=== PATIENT | male | born 1975 | race Caucasian/White ===

== ENCOUNTER 2022-03-28 17:26 | Inpatient (IN) | payer OTHER ==
[~2022-03-28] VITALS: Ht 162.6 cm; Wt 60.4 kg
[~2022-03-28 17:26] MED LIST: ATOR10TA PO; CHOL500013 PO; DIVA-112 PO; LEVE250T4 PO; LEVO50 PO; MELA5TAB40 PO; OLAN10TA74 PO; QUET200T PO; TRAZ-257 PO
[2022-03-28] MEDS ORDERED: ACETAMINOPHEN 325 MG TABLET PO PRN (19:30)
[2022-03-28] MEDS ORDERED: ONDANSETRON HCL 4 MG/2 ML VIAL IVP PRN (19:30)
[2022-03-28] MEDS ORDERED: DiphenhydrAMINE HCL 50 MG/ML VIAL IM ONE (21:00)
[2022-03-28] MEDS ORDERED: LORazepam 2 MG/ML VIAL IM ONE (21:00)
[2022-03-28] MEDS: QUEtiapine FUMARATE 200 MG TABLET PO SCH ×2 (21:00→22:58)
[2022-03-28] MEDS ORDERED: HALOPERIDOL LACTATE 5 MG/ML VIAL IM ONE (21:00)
[2022-03-28] MEDS: OLANZapine 10 MG TABLET PO SCH ×2 (21:00→22:58)
[2022-03-28 21:12] LABS: HEMATOCRIT 39.1 % (41-53); HEMOGLOBIN 12.8 g/dL (13.5-17.5); MEAN CORPUSCULAR HEMOGLOBIN 30.7 pg (26.0-34.0); MEAN CORPUSCULAR HGB CONC 32.6 G/dL (31.0-37.0); MEAN CORPUSCULAR VOLUME 94 fL (80-100); PLATELET COUNT (AUTO) 369 K/uL (150-450); RED BLOOD CELL COUNT(AUTO) 4.16 MIL/uL (4.50-5.90); RED CELL DISTRIBUTION WIDTH 14.1 % (11.5-14.5)
[2022-03-28 21:16] LABS: COVID AG,FIA SOURCE NASOPHARYNGEAL
[2022-03-28 21:22] LABS: ANION GAP 4 mmol/L (8-16); CALCIUM, TOTAL 9.4 mg/dL (8.8-10.5); CARBON DIOXIDE 30 mmol/L (22-29); CHLORIDE 96 mmol/L (98-107); CREATININE 0.81 mg/dL (0.60-1.30); GLUCOSE,RANDOM 108 mg/dL (70-110); POTASSIUM 4.2 mmol/L (3.5-5.1); SODIUM SERUM 130 mmol/L (136-145); UREA NITROGEN, BLOOD 22 mg/dL (7-18)
[2022-03-28 21:24] LABS: GLOMERULAR FILTR. RATE CALC > 60 mL/min (>60)
[2022-03-28 21:28] LABS: ALANINE AMINOTRANSFERASE 21 U/L (12-78); ALBUMIN 2.3 g/dL (3.4-5.0); ALKALINE PHOSPHATASE 159 U/L (46-116); ASPARTATE AMINOTRANSFERASE 28 U/L (15-37); BILIRUBIN,TOTAL 0.3 mg/dL (0.1-1.0); TOTAL PROTEIN, SERUM 7.6 g/dL (6.4-8.2)
[2022-03-28 21:43] LABS: BAND NEUTROPHILS % (MANUAL) 17 % (0-5); LYMPHOCYTES % (MANUAL) 16 % (22-44); MONOCYTES % (MANUAL) 12 % (2-9); SEGMENTED NEUTROPHILS % 55 % (40-70)
[2022-03-28] MEDS: DIVALPROEX SODIUM 500 MG DR TABLET PO SCH (21:51)
[2022-03-28] MEDS: LevETIRAcetam 250 MG TABLET PO SCH (21:51)
[2022-03-28] MEDS: ATORVASTATIN CALCIUM 10 MG TABLET PO SCH (21:51)
[2022-03-28] MEDS ORDERED: RINGERS SOLUTION,LACTATED 1,000 ML IV SCH (22:30)
[2022-03-28] MEDS: MELATONIN 5 MG TABLET PO SCH (22:58)
[2022-03-28] MEDS: TraZODone HCL 100 MG TABLET PO SCH (22:59)
[2022-03-29] MEDS: LEVOTHYROXINE SODIUM 50 MCG TABLET PO SCH (06:30)
[2022-03-29 08:00] VITALS: BP 125/73
[2022-03-29 08:45] VITALS: BP 125/73
[2022-03-29] MEDS: DIVALPROEX SODIUM 500 MG DR TABLET PO SCH ×3 (09:42→20:14)
[2022-03-29] MEDS: OLANZapine 10 MG TABLET PO SCH ×2 (09:43→20:17)
[2022-03-29] MEDS: LevETIRAcetam 250 MG TABLET PO SCH ×2 (09:43→20:15)
[2022-03-29] MEDS: CHOLECALCIFEROL (VIT D3) 5,000 [125 MCG] UNITS CAPSULE PO SCH (09:43)
[2022-03-29 15:00] VITALS: BP 121/78
[2022-03-29 19:40] VITALS: BP 132/86
[2022-03-29] MEDS: ATORVASTATIN CALCIUM 10 MG TABLET PO SCH (20:15)
[2022-03-29] MEDS: TraZODone HCL 100 MG TABLET PO SCH (20:15)
[2022-03-29] MEDS: QUEtiapine FUMARATE 200 MG TABLET PO SCH (20:16)
[2022-03-29] MEDS: MELATONIN 5 MG TABLET PO SCH (20:16)
[2022-03-30 04:00] VITALS: BP 119/72
[2022-03-30] MEDS: LEVOTHYROXINE SODIUM 50 MCG TABLET PO SCH (06:14)
[2022-03-30] MEDS: DIVALPROEX SODIUM 500 MG DR TABLET PO SCH ×3 (08:54→21:12)
[2022-03-30] MEDS: CHOLECALCIFEROL (VIT D3) 5,000 [125 MCG] UNITS CAPSULE PO SCH (08:54)
[2022-03-30] MEDS: OLANZapine 10 MG TABLET PO SCH ×2 (08:54→21:11)
[2022-03-30] MEDS: LevETIRAcetam 250 MG TABLET PO SCH ×2 (08:54→21:12)
[2022-03-30 11:31] LABS: BASOPHILS % (AUTO) 0.4 % (0.0-2.0); HEMATOCRIT 37.5 % (41-53); HEMOGLOBIN 12.6 g/dL (13.5-17.5); LYMPHOCYTES % (AUTO) 23.3 % (22.0-44.0); MEAN CORPUSCULAR HEMOGLOBIN 31.6 pg (26.0-34.0); MEAN CORPUSCULAR HGB CONC 33.5 G/dL (31.0-37.0); MEAN CORPUSCULAR VOLUME 94 fL (80-100); MONOCYTES # (AUTO) 0.8 K/uL (0.1-1.0); MONOCYTES % (AUTO) 9.2 % (2.0-9.0); NEUTROPHILS # (AUTO) 5.8 K/uL (1.8-7.7); NEUTROPHILS % (AUTO) 66.1 % (40.0-70.0); PLATELET COUNT (AUTO) 377 K/uL (150-450); RED BLOOD CELL COUNT(AUTO) 3.98 MIL/uL (4.50-5.90); RED CELL DISTRIBUTION WIDTH 14.1 % (11.5-14.5)
[2022-03-30 11:45] LABS: ANION GAP 5 mmol/L (8-16); CALCIUM, TOTAL 8.9 mg/dL (8.8-10.5); CARBON DIOXIDE 31 mmol/L (22-29); CHLORIDE 94 mmol/L (98-107); CREATININE 0.62 mg/dL (0.60-1.30); GLUCOSE,RANDOM 110 mg/dL (70-110); POTASSIUM 4.1 mmol/L (3.5-5.1); SODIUM SERUM 130 mmol/L (136-145); UREA NITROGEN, BLOOD 10 mg/dL (7-18)
[2022-03-30 11:50] LABS: GLOMERULAR FILTR. RATE CALC > 60 mL/min (>60)
[2022-03-30 20:05] VITALS: BP 108/65
[2022-03-30] MEDS: MELATONIN 5 MG TABLET PO SCH (21:11)
[2022-03-30] MEDS: QUEtiapine FUMARATE 200 MG TABLET PO SCH (21:11)
[2022-03-30] MEDS: ATORVASTATIN CALCIUM 10 MG TABLET PO SCH (21:12)
[2022-03-30] MEDS: TraZODone HCL 100 MG TABLET PO SCH (21:13)
[2022-03-31] MEDS: LEVOTHYROXINE SODIUM 50 MCG TABLET PO SCH (06:11)
[2022-03-31 08:43] VITALS: BP 121/78
[2022-03-31] MEDS: LevETIRAcetam 250 MG TABLET PO SCH ×2 (09:12→20:01)
[2022-03-31] MEDS: OLANZapine 10 MG TABLET PO SCH ×2 (09:12→20:01)
[2022-03-31] MEDS: DIVALPROEX SODIUM 500 MG DR TABLET PO SCH ×3 (09:12→20:00)
[2022-03-31] MEDS: CHOLECALCIFEROL (VIT D3) 5,000 [125 MCG] UNITS CAPSULE PO SCH (09:12)
[2022-03-31 16:07] VITALS: BP 108/66
[2022-03-31 19:30] VITALS: BP 106/69
[2022-03-31] MEDS: MELATONIN 5 MG TABLET PO SCH (20:00)
[2022-03-31] MEDS: QUEtiapine FUMARATE 200 MG TABLET PO SCH (20:00)
[2022-03-31] MEDS: TraZODone HCL 100 MG TABLET PO SCH (20:01)
[2022-03-31] MEDS: ATORVASTATIN CALCIUM 10 MG TABLET PO SCH (20:01)
[2022-04-01 06:00] VITALS: BP 103/75
[2022-04-01] MEDS: LEVOTHYROXINE SODIUM 50 MCG TABLET PO SCH (06:04)
[2022-04-01] MEDS: CHOLECALCIFEROL (VIT D3) 5,000 [125 MCG] UNITS CAPSULE PO SCH (08:28)
[2022-04-01] MEDS: DIVALPROEX SODIUM 500 MG DR TABLET PO SCH ×3 (08:30→21:38)
[2022-04-01] MEDS: OLANZapine 10 MG TABLET PO SCH ×2 (08:30→21:41)
[2022-04-01] MEDS: LevETIRAcetam 250 MG TABLET PO SCH ×2 (08:30→21:39)
[2022-04-01 08:39] VITALS: BP 104/65
[2022-04-01 16:35] VITALS: BP 100/72
[2022-04-01 19:30] VITALS: BP 110/79
[2022-04-01] MEDS: TraZODone HCL 100 MG TABLET PO SCH (21:38)
[2022-04-01] MEDS: ATORVASTATIN CALCIUM 10 MG TABLET PO SCH (21:39)
[2022-04-01] MEDS: MELATONIN 5 MG TABLET PO SCH (21:40)
[2022-04-01] MEDS: QUEtiapine FUMARATE 200 MG TABLET PO SCH (21:40)
[2022-04-02] MEDS: LEVOTHYROXINE SODIUM 50 MCG TABLET PO SCH (05:48)
[2022-04-02 06:00] VITALS: BP 103/61
[2022-04-02 06:48] LABS: BASOPHILS % (AUTO) 0.3 % (0.0-2.0); EOSINOPHILS % (AUTO) 0.7 % (1.0-6.0); HEMATOCRIT 35.7 % (41-53); LYMPHOCYTES # (AUTO) 2.5 K/uL (1.0-4.8); LYMPHOCYTES % (AUTO) 27.5 % (22.0-44.0); MEAN CORPUSCULAR HEMOGLOBIN 31.8 pg (26.0-34.0); MEAN CORPUSCULAR HGB CONC 33.6 G/dL (31.0-37.0); MEAN CORPUSCULAR VOLUME 95 fL (80-100); MONOCYTES # (AUTO) 0.6 K/uL (0.1-1.0); MONOCYTES % (AUTO) 7.1 % (2.0-9.0); NEUTROPHILS # (AUTO) 5.8 K/uL (1.8-7.7); NEUTROPHILS % (AUTO) 64.4 % (40.0-70.0); PLATELET COUNT (AUTO) 404 K/uL (150-450); RED BLOOD CELL COUNT(AUTO) 3.77 MIL/uL (4.50-5.90); RED CELL DISTRIBUTION WIDTH 14.2 % (11.5-14.5)
[2022-04-02] MEDS: LevETIRAcetam 250 MG TABLET PO SCH ×2 (08:11→20:27)
[2022-04-02] MEDS: DIVALPROEX SODIUM 500 MG DR TABLET PO SCH ×3 (08:11→20:27)
[2022-04-02] MEDS: CHOLECALCIFEROL (VIT D3) 5,000 [125 MCG] UNITS CAPSULE PO SCH (08:11)
[2022-04-02] MEDS: OLANZapine 10 MG TABLET PO SCH ×2 (08:11→20:27)
[2022-04-02] MEDS ORDERED: SODIUM CHLORIDE 0.9% 250 ML IV ONE (09:21)
[2022-04-02 09:31] VITALS: BP 113/63
[2022-04-02 15:54] VITALS: BP 105/59
[2022-04-02 19:58] VITALS: BP 111/69
[2022-04-02] MEDS: ATORVASTATIN CALCIUM 10 MG TABLET PO SCH (20:27)
[2022-04-02] MEDS: MELATONIN 5 MG TABLET PO SCH (20:27)
[2022-04-02] MEDS: TraZODone HCL 100 MG TABLET PO SCH (20:27)
[2022-04-02] MEDS: QUEtiapine FUMARATE 200 MG TABLET PO SCH (20:27)
[2022-04-03 04:42] VITALS: BP 108/63
[2022-04-03 06:00] LABS: ALANINE AMINOTRANSFERASE 24 U/L (12-78); ALBUMIN 2.4 g/dL (3.4-5.0); ALKALINE PHOSPHATASE 129 U/L (46-116); ANION GAP 5 mmol/L (8-16); ASPARTATE AMINOTRANSFERASE 27 U/L (15-37); BILIRUBIN,TOTAL 0.3 mg/dL (0.1-1.0); CALCIUM, TOTAL 9.2 mg/dL (8.8-10.5); CARBON DIOXIDE 31 mmol/L (22-29); CHLORIDE 97 mmol/L (98-107); CREATININE 0.62 mg/dL (0.60-1.30); GLUCOSE,RANDOM 95 mg/dL (70-110); POTASSIUM 4.1 mmol/L (3.5-5.1); SODIUM SERUM 133 mmol/L (136-145); TOTAL PROTEIN, SERUM 7.2 g/dL (6.4-8.2); UREA NITROGEN, BLOOD 9 mg/dL (7-18)
[2022-04-03 06:01] LABS: GLOMERULAR FILTR. RATE CALC > 60 mL/min (>60)
[2022-04-03] MEDS: LEVOTHYROXINE SODIUM 50 MCG TABLET PO SCH (07:21)
[2022-04-03 07:33] VITALS: BP 111/55
[2022-04-03] MEDS: LevETIRAcetam 250 MG TABLET PO SCH ×2 (08:26→21:02)
[2022-04-03] MEDS: DIVALPROEX SODIUM 500 MG DR TABLET PO SCH ×3 (08:26→21:02)
[2022-04-03] MEDS: OLANZapine 10 MG TABLET PO SCH ×2 (08:26→21:02)
[2022-04-03] MEDS: CHOLECALCIFEROL (VIT D3) 5,000 [125 MCG] UNITS CAPSULE PO SCH (08:27)
[2022-04-03 15:19] VITALS: BP 98/70
[2022-04-03 20:30] VITALS: BP 98/60
[2022-04-03] MEDS: QUEtiapine FUMARATE 200 MG TABLET PO SCH (21:02)
[2022-04-03] MEDS: TraZODone HCL 100 MG TABLET PO SCH (21:02)
[2022-04-03] MEDS: ATORVASTATIN CALCIUM 10 MG TABLET PO SCH (21:02)
[2022-04-03] MEDS: MELATONIN 5 MG TABLET PO SCH (21:08)
[2022-04-04 05:00] VITALS: BP 100/72
[2022-04-04] MEDS: LEVOTHYROXINE SODIUM 50 MCG TABLET PO SCH (05:49)
[2022-04-04 07:41] VITALS: BP 102/68
[2022-04-04] MEDS: CHOLECALCIFEROL (VIT D3) 5,000 [125 MCG] UNITS CAPSULE PO SCH (08:57)
[2022-04-04] MEDS: LevETIRAcetam 250 MG TABLET PO SCH ×2 (08:57→21:05)
[2022-04-04] MEDS: DIVALPROEX SODIUM 500 MG DR TABLET PO SCH ×3 (08:57→21:05)
[2022-04-04] MEDS: OLANZapine 10 MG TABLET PO SCH ×2 (08:57→21:05)
[2022-04-04 15:01] VITALS: BP 106/70
[2022-04-04] MEDS: QUEtiapine FUMARATE 200 MG TABLET PO SCH (21:05)
[2022-04-04] MEDS: MELATONIN 5 MG TABLET PO SCH (21:05)
[2022-04-04] MEDS: TraZODone HCL 100 MG TABLET PO SCH (21:05)
[2022-04-04] MEDS: ATORVASTATIN CALCIUM 10 MG TABLET PO SCH (21:05)
[2022-04-04 21:20] VITALS: BP 110/64
[2022-04-05] MEDS: LEVOTHYROXINE SODIUM 50 MCG TABLET PO SCH (05:53)
[2022-04-05 05:58] VITALS: BP 104/65
[2022-04-05 08:00] VITALS: BP 112/68
[2022-04-05] MEDS: OLANZapine 10 MG TABLET PO SCH ×2 (08:33→20:45)
[2022-04-05] MEDS: DIVALPROEX SODIUM 500 MG DR TABLET PO SCH ×3 (08:33→20:44)
[2022-04-05] MEDS: CHOLECALCIFEROL (VIT D3) 5,000 [125 MCG] UNITS CAPSULE PO SCH (08:33)
[2022-04-05] MEDS: LevETIRAcetam 250 MG TABLET PO SCH ×2 (08:33→20:44)
[2022-04-05 19:30] VITALS: BP 105/59
[2022-04-05] MEDS: TraZODone HCL 100 MG TABLET PO SCH (20:44)
[2022-04-05] MEDS: QUEtiapine FUMARATE 200 MG TABLET PO SCH (20:44)
[2022-04-05] MEDS: ATORVASTATIN CALCIUM 10 MG TABLET PO SCH (20:44)
[2022-04-05] MEDS: MELATONIN 5 MG TABLET PO SCH (20:45)
[2022-04-06 05:00] VITALS: BP 96/56
[2022-04-06] MEDS: LEVOTHYROXINE SODIUM 50 MCG TABLET PO SCH (05:44)
[2022-04-06 07:28] VITALS: BP 107/61
[2022-04-06] MEDS: DIVALPROEX SODIUM 500 MG DR TABLET PO SCH ×3 (08:04→21:04)
[2022-04-06] MEDS: LevETIRAcetam 250 MG TABLET PO SCH ×2 (08:04→21:04)
[2022-04-06] MEDS: CHOLECALCIFEROL (VIT D3) 5,000 [125 MCG] UNITS CAPSULE PO SCH (08:04)
[2022-04-06] MEDS: OLANZapine 10 MG TABLET PO SCH ×2 (08:04→21:05)
[2022-04-06 15:03] VITALS: BP 103/59
[2022-04-06 20:10] VITALS: BP 102/66
[2022-04-06] MEDS: QUEtiapine FUMARATE 200 MG TABLET PO SCH (21:04)
[2022-04-06] MEDS: ATORVASTATIN CALCIUM 10 MG TABLET PO SCH (21:04)
[2022-04-06] MEDS: MELATONIN 5 MG TABLET PO SCH (21:04)
[2022-04-06] MEDS: TraZODone HCL 100 MG TABLET PO SCH (21:04)
[2022-04-07 06:00] VITALS: BP 106/60
[2022-04-07] MEDS: LEVOTHYROXINE SODIUM 50 MCG TABLET PO SCH (06:07)
[2022-04-07] MEDS: DIVALPROEX SODIUM 500 MG DR TABLET PO SCH ×3 (08:49→20:13)
[2022-04-07] MEDS: OLANZapine 10 MG TABLET PO SCH ×2 (08:49→20:13)
[2022-04-07] MEDS: LevETIRAcetam 250 MG TABLET PO SCH ×2 (08:49→20:13)
[2022-04-07] MEDS: CHOLECALCIFEROL (VIT D3) 5,000 [125 MCG] UNITS CAPSULE PO SCH (08:49)
[2022-04-07 08:50] VITALS: BP 106/64
[2022-04-07 15:07] VITALS: BP 105/70
[2022-04-07 19:32] VITALS: BP 105/62
[2022-04-07] MEDS: TraZODone HCL 100 MG TABLET PO SCH (20:13)
[2022-04-07] MEDS: MELATONIN 5 MG TABLET PO SCH (20:13)
[2022-04-07] MEDS: QUEtiapine FUMARATE 200 MG TABLET PO SCH (20:13)
[2022-04-07] MEDS: ATORVASTATIN CALCIUM 10 MG TABLET PO SCH (20:13)
[2022-04-08 04:48] VITALS: BP 102/62
[2022-04-08] MEDS: LEVOTHYROXINE SODIUM 50 MCG TABLET PO SCH (05:42)
[2022-04-08 08:00] VITALS: BP 97/64
[2022-04-08] MEDS: DIVALPROEX SODIUM 500 MG DR TABLET PO SCH ×3 (08:40→20:11)
[2022-04-08] MEDS: OLANZapine 10 MG TABLET PO SCH ×2 (08:40→20:12)
[2022-04-08] MEDS: LevETIRAcetam 250 MG TABLET PO SCH ×2 (08:40→20:11)
[2022-04-08] MEDS: CHOLECALCIFEROL (VIT D3) 5,000 [125 MCG] UNITS CAPSULE PO SCH (08:40)
[2022-04-08 16:32] VITALS: BP 112/64
[2022-04-08 19:40] VITALS: BP 109/57
[2022-04-08] MEDS: MELATONIN 5 MG TABLET PO SCH (20:11)
[2022-04-08] MEDS: TraZODone HCL 100 MG TABLET PO SCH (20:11)
[2022-04-08] MEDS: ATORVASTATIN CALCIUM 10 MG TABLET PO SCH (20:11)
[2022-04-08] MEDS: QUEtiapine FUMARATE 200 MG TABLET PO SCH (20:12)
[2022-04-09 05:31] VITALS: BP 103/52
[2022-04-09] MEDS: LEVOTHYROXINE SODIUM 50 MCG TABLET PO SCH (05:33)
[2022-04-09 08:34] VITALS: BP 116/67
[2022-04-09] MEDS: CHOLECALCIFEROL (VIT D3) 5,000 [125 MCG] UNITS CAPSULE PO SCH (09:32)
[2022-04-09] MEDS: LevETIRAcetam 250 MG TABLET PO SCH ×2 (09:32→20:34)
[2022-04-09] MEDS: OLANZapine 10 MG TABLET PO SCH ×2 (09:32→20:34)
[2022-04-09] MEDS: DIVALPROEX SODIUM 500 MG DR TABLET PO SCH ×3 (09:32→20:34)
[2022-04-09 16:55] VITALS: BP 114/63
[2022-04-09] MEDS: ATORVASTATIN CALCIUM 10 MG TABLET PO SCH (20:34)
[2022-04-09] MEDS: MELATONIN 5 MG TABLET PO SCH (20:34)
[2022-04-09] MEDS: TraZODone HCL 100 MG TABLET PO SCH (20:34)
[2022-04-09] MEDS: QUEtiapine FUMARATE 200 MG TABLET PO SCH (20:34)
[2022-04-09 20:41] VITALS: BP 113/60
[2022-04-10 04:18] VITALS: BP 106/62
[2022-04-10] MEDS: LEVOTHYROXINE SODIUM 50 MCG TABLET PO SCH (06:06)
[2022-04-10 07:54] VITALS: BP 104/65
[2022-04-10] MEDS: LevETIRAcetam 250 MG TABLET PO SCH ×2 (09:02→20:16)
[2022-04-10] MEDS: DIVALPROEX SODIUM 500 MG DR TABLET PO SCH ×3 (09:02→20:17)
[2022-04-10] MEDS: CHOLECALCIFEROL (VIT D3) 5,000 [125 MCG] UNITS CAPSULE PO SCH (09:03)
[2022-04-10] MEDS: OLANZapine 10 MG TABLET PO SCH ×2 (09:03→20:16)
[2022-04-10 15:24] VITALS: BP 111/63
[2022-04-10 19:45] VITALS: BP 106/56
[2022-04-10] MEDS: TraZODone HCL 100 MG TABLET PO SCH (20:15)
[2022-04-10] MEDS: MELATONIN 5 MG TABLET PO SCH (20:16)
[2022-04-10] MEDS: QUEtiapine FUMARATE 200 MG TABLET PO SCH (20:16)
[2022-04-10] MEDS: ATORVASTATIN CALCIUM 10 MG TABLET PO SCH (20:16)
[2022-04-11 05:42] VITALS: BP 97/62
[2022-04-11] MEDS: LEVOTHYROXINE SODIUM 50 MCG TABLET PO SCH (06:53)
[2022-04-11 07:13] VITALS: BP 99/72
[2022-04-11] MEDS: DIVALPROEX SODIUM 500 MG DR TABLET PO SCH ×3 (08:56→20:22)
[2022-04-11] MEDS: LevETIRAcetam 250 MG TABLET PO SCH ×2 (08:56→20:22)
[2022-04-11] MEDS: CHOLECALCIFEROL (VIT D3) 5,000 [125 MCG] UNITS CAPSULE PO SCH (08:56)
[2022-04-11] MEDS: OLANZapine 10 MG TABLET PO SCH ×2 (08:56→20:22)
[2022-04-11 15:40] VITALS: BP 92/58
[2022-04-11 19:30] VITALS: BP 97/59
[2022-04-11] MEDS: MELATONIN 5 MG TABLET PO SCH (20:21)
[2022-04-11] MEDS: ATORVASTATIN CALCIUM 10 MG TABLET PO SCH (20:21)
[2022-04-11] MEDS: QUEtiapine FUMARATE 200 MG TABLET PO SCH (20:22)
[2022-04-11] MEDS: TraZODone HCL 100 MG TABLET PO SCH (20:22)
[2022-04-12 05:10] VITALS: BP 101/67
[2022-04-12] MEDS: LEVOTHYROXINE SODIUM 50 MCG TABLET PO SCH (05:39)
[2022-04-12 07:47] VITALS: BP 90/61
[2022-04-12] MEDS: OLANZapine 10 MG TABLET PO SCH (08:31)
[2022-04-12] MEDS: DIVALPROEX SODIUM 500 MG DR TABLET PO SCH (08:31)
[2022-04-12] MEDS: CHOLECALCIFEROL (VIT D3) 5,000 [125 MCG] UNITS CAPSULE PO SCH (08:31)
[2022-04-12] MEDS: LevETIRAcetam 250 MG TABLET PO SCH (08:31)
== END 2022-04-12 14:45 | disposition home or self-care (01) | DRG 426 ==
LOC: EMS 17:39 → 6N 03-29 06:28
PROVIDERS: ADMIT Internal Medicine; ATTEND Internal Medicine
DX: E87.1 Hypo-osmolality and hyponatremia (principal); R65.10 Systemic inflammatory response syndrome (SIRS) of non-infectious origin without acute organ dysfunction; D64.9 Anemia, unspecified; E03.9 Hypothyroidism, unspecified; Z20.822 Contact with and (suspected) exposure to COVID-19; R19.7 Diarrhea, unspecified; R00.0 Tachycardia, unspecified; G40.909 Epilepsy, unspecified, not intractable, without status epilepticus; Z91.198 Patient's noncompliance with other medical treatment and regimen for other reason; Z79.899 Other long term (current) drug therapy
CPT/HCPCS: 80048; 80053; 82271; 83605; 85025; 87040; 87081; 89055; 99285; J1200; J1630; J2060; J7050; J7120; Q9967